=== PATIENT | female | born 1960 | race Two or more races ===

== ENCOUNTER 2022-02-16 23:38 | Emergency (ER) | payer MEDICAID, OTHER ==
[~2022-02-16] VITALS: Ht 175.3 cm; Wt 59.0 kg
[2022-02-17] MEDS ORDERED: PROMETHAZINE HCL 25 MG/ML 1ML IM ONE (09:45)
[2022-02-17 18:05] VITALS: BP 146/82
== END 2022-02-17 18:50 | disposition home or self-care (01) ==
LOC: EDBD 23:38 → ER 23:38
DX: S01.01XA Laceration without foreign body of scalp, initial encounter (principal); F10.10 Alcohol abuse, uncomplicated; I10 Essential (primary) hypertension; W18.39XA Other fall on same level, initial encounter; Y93.89 Activity, other specified; Y92.89 Other specified places as the place of occurrence of the external cause; Y99.8 Other external cause status; Y90.0 Blood alcohol level of less than 20 mg/100 ml
CPT/HCPCS: 12001; 36415; 70450; 80320; 96372; 99285; J2550

== ENCOUNTER 2023-02-28 09:30 | Inpatient (IN) | payer MEDICAID ==
[~2023-02-28] VITALS: Ht 175.3 cm; Wt 56.4 kg
[2023-02-28] MEDS ORDERED: SODIUM CHLORIDE 0.9% 1,000 ML IV ONE (10:45)
[2023-02-28 11:36] LABS: Basophils # (auto) 0 10 ^3/uL (0-0.2); Basophils % (auto) 0.4 % (0.0-2.0); Eosinophils # (auto) 0 10 ^3/uL (0-0.8); Eosinophils % (auto) 0.4 % (0.0-7.0); Hemoglobin 14.3 g/dL (12.2-16.2); Lymphocytes % (auto) 11.6 % (10.0-50.0); Mean Corpuscular Hemoglobin 33.5 pg (28.0-32.0); Mean Corpuscular Hgb Conc. 34.1 g/dL (32.0-36.0); Monocytes # (auto) 0.7 10 ^3/uL (0-1.3); Monocytes % (auto) 8.9 % (0.0-12.0); Neutrophils # (auto) 6.6 10 ^3/uL (1.6-8.6); Neutrophils % (auto) 78.7 % (37.0-80.0); Nucleated Red Blood Cells % 0.2 %; Red Blood Cells 4.28 10^6/uL (4.0-5.20); Red Cell Distribution Width 13.5 % (11.8-14.3); White Blood Cell 8.4 10^3/uL (4.4-10.8)
[2023-02-28 11:45] LABS: INR 0.97 (0.9-1.15); Partial Thromboplastin Time 28.5 sec (24.6-33.4)
[2023-02-28 11:48] LABS: Albumin 3.8 g/dL (3.4-5.0); Calcium 9.6 mg/dL (8.5-10.1); Potassium 4.2 mmol/L (3.5-5.1)
[2023-02-28 11:51] LABS: Bilirubin, Total 0.6 mg/dL (0.2-1.0); Total Protein 7.7 g/dL (6.4-8.2)
[2023-02-28] MEDS ORDERED: ONDANSETRON HCL 4 MG/2 ML VIAL IV PRN (13:15)
[2023-02-28] MEDS ORDERED: DOCUSATE SOD 100 MG CAP PO PRN (13:15)
[2023-02-28] MEDS ORDERED: MORPHINE SULFATE INJ 2 MG/ml SYRG IV PRN (13:15)
[2023-02-28] MEDS ORDERED: ETOMIDATE (2MG/ML) 20ML VIAL IV ONE (17:00)
[2023-02-28] MEDS: SODIUM CHLORIDE 0.9% 1,000 ML IV SCH ×2 (17:48→21:53)
[2023-03-01] MEDS: SODIUM CHLORIDE 0.9% 1,000 ML IV SCH ×3 (02:35→14:55)
[2023-03-01 05:00] VITALS: BP 124/84
[2023-03-01 06:13] LABS: Basophils # (auto) 0.1 10 ^3/uL (0-0.2); Basophils % (auto) 0.8 % (0.0-2.0); Eosinophils # (auto) 0.1 10 ^3/uL (0-0.8); Eosinophils % (auto) 1.1 % (0.0-7.0); Hematocrit 37.9 % (36.0-46.0); Hemoglobin 13.2 g/dL (12.2-16.2); Lymphocytes # (auto) 1.3 10 ^3/uL (0.4-5.4); Lymphocytes % (auto) 20.5 % (10.0-50.0); Mean Corpuscular Hemoglobin 33.6 pg (28.0-32.0); Mean Corpuscular Hgb Conc. 34.8 g/dL (32.0-36.0); Mean Corpuscular Volume 96.4 fL (80.0-100.0); Monocytes # (auto) 0.9 10 ^3/uL (0-1.3); Monocytes % (auto) 14.6 % (0.0-12.0); Nucleated Red Blood Cells % 0.2 %; Red Blood Cells 3.93 10^6/uL (4.0-5.20); Red Cell Distribution Width 13.6 % (11.8-14.3); White Blood Cell 6.4 10^3/uL (4.4-10.8)
[2023-03-01 06:25] LABS: BUN/Creatinine Ratio 21.1 (10.0-20.0); Potassium 4.2 mmol/L (3.5-5.1)
[2023-03-01 06:28] LABS: Bilirubin, Total 0.5 mg/dL (0.2-1.0); Total Protein 6.8 g/dL (6.4-8.2)
[2023-03-01 06:55] LABS: Urine Bacteria FEW /hpf (None Seen); Urine Blood Negative /uL (Negative); Urine Mucus FEW (None Seen); Urine Specific Gravity 1.009 (1.001-1.035); Urine WBC <1 /hpf (0 - 5)
[2023-03-01 07:07] LABS: Creatinine, Urine 42 mg/dL (30.0-125.0); Sodium Urine 92 mmol/L (40-220)
[2023-03-01 09:20] VITALS: BP_SYST 135; BP_SYST 139; BP_DIAS 77; BP_DIAS 80; BP_DIAS 85
[2023-03-01] MEDS: PANTOPRAZOLE 40 MG/10 ML VIAL INJ IV SCH (10:02)
[2023-03-01] MEDS: ENOXAPARIN SOD 40 MG/0.4 ML SYRINGE SC SCH (10:03)
[2023-03-01 13:09] VITALS: BP 148/93
[2023-03-01 17:00] VITALS: BP 149/95
[2023-03-01 20:00] VITALS: BP 148/86
[2023-03-01 22:00] VITALS: BP 150/87
[2023-03-02 05:00] VITALS: BP 160/103
[2023-03-02] MEDS: SODIUM CHLORIDE 0.9% 1,000 ML IV SCH ×3 (06:51→19:07)
[2023-03-02 08:51] VITALS: BP 161/88
[2023-03-02 13:00] VITALS: BP 157/107
[2023-03-02] MEDS: ENOXAPARIN SOD 40 MG/0.4 ML SYRINGE SC SCH (14:37)
[2023-03-02] MEDS: PANTOPRAZOLE 40 MG/10 ML VIAL INJ IV SCH (14:37)
[2023-03-02 17:00] VITALS: BP_SYST 156; BP_SYST 2; BP_DIAS 94
[2023-03-02] MEDS: FOLIC ACID 1 MG, MULTIPLE VITAMIN 10 ML, MAGNESIUM SULF SDV 50% 8 MEQ, THIAMINE INJ 100... INJ SCH ×5 (19:06)
[2023-03-02 20:00] VITALS: BP 137/76
[2023-03-02 21:59] VITALS: BP 136/96
[2023-03-03] VITALS (11 sets, daily range): BP systolic 112–152; BP diastolic 48–93
[2023-03-03] MEDS ORDERED: BUPIVACAINE HCL 50 ML ONE (07:48)
[2023-03-03] MEDS: SODIUM CHLORIDE 0.9% 1,000 ML IV SCH ×2 (07:55→16:15)
[2023-03-03] MEDS ORDERED: ceFAZolin 1GM/50ML 100 ML IV ONE (08:11)
[2023-03-03] MEDS ORDERED: fentaNYL CITRATE 100 MCG/2 ML VL ONE (08:17)
[2023-03-03] MEDS ORDERED: MORPHINE SULF PF 5 MG/10 ML VIAL ONE (08:17)
[2023-03-03] MEDS ORDERED: ePHEDrine SULFATE 50 MG/ML AMP ONE (08:18)
[2023-03-03] MEDS ORDERED: MIDAZOLAM HCL 2MG/2ML 2ml VIAL (1mg/ml) ONE (08:18)
[2023-03-03] MEDS ORDERED: GLYCOPYRROLATE 0.2 MG/ML 1ML VIAL ONE (08:18)
[2023-03-03] MEDS ORDERED: PROPOFOL 10 MG/ML 20 ML IV ONE (08:18)
[2023-03-03] MEDS ORDERED: ONDANSETRON HCL 4 MG/2 ML VIAL ONE (08:18)
[2023-03-03] MEDS ORDERED: LABETALOL HCL 5 MG/ML ML 20ML VIAL IV ONE (09:01)
[2023-03-03] MEDS: PANTOPRAZOLE 40 MG/10 ML VIAL INJ IV SCH (10:00)
[2023-03-03] MEDS: ENOXAPARIN SOD 40 MG/0.4 ML SYRINGE SC SCH (10:00)
[2023-03-03] MEDS ORDERED: diphenhdrAMINE HCL 50 MG/1 ML VL IV PRN (10:15)
[2023-03-03] MEDS ORDERED: DexAMETHasone SOD PHOS 10MG/1ML VIAL INJ IV PRN (10:15)
[2023-03-03] MEDS ORDERED: NALOXONE HCL 0.4 MG/ML VIAL IV PRN (10:15)
[2023-03-03] MEDS ORDERED: ONDANSETRON HCL 4 MG/2 ML VIAL IV PRN (10:15)
[2023-03-03] MEDS: ceFAZolin 1GM/50ML 50 ML IV SCH ×2 (15:16→22:42)
[2023-03-03] MEDS: FOLIC ACID 1 MG, MULTIPLE VITAMIN 10 ML, MAGNESIUM SULF SDV 50% 8 MEQ, THIAMINE INJ 100... INJ SCH ×5 (15:23)
[2023-03-04] VITALS (13 sets, daily range): BP systolic 113–156; BP diastolic 67–125
[2023-03-04] MEDS: ceFAZolin 1GM/50ML 50 ML IV SCH (05:20)
[2023-03-04] MEDS: SODIUM CHLORIDE 0.9% 1,000 ML IV SCH ×2 (05:20→09:49)
[2023-03-04] MEDS: KETOROLAC TROMETH 30 MG/ML 1ML VIAL IV PRN ×2 (06:53→15:24)
[2023-03-04] MEDS: ENOXAPARIN SOD 40 MG/0.4 ML SYRINGE SC SCH (09:49)
[2023-03-04] MEDS: PANTOPRAZOLE 40 MG/10 ML VIAL INJ IV SCH (09:49)
[2023-03-04] MEDS: FOLIC ACID 1 MG, MULTIPLE VITAMIN 10 ML, MAGNESIUM SULF SDV 50% 8 MEQ, THIAMINE INJ 100... INJ SCH ×5 (12:30)
[2023-03-04] MEDS ORDERED: ONDA-144 PO (14:23)
[2023-03-04] MEDS ORDERED: NALO4SPR2 (14:23)
[2023-03-04] MEDS ORDERED: HYDR-4902 PO (14:23)
[2023-03-04] MEDS ORDERED: TRAZ50TA2 PO (14:41)
== END 2023-03-04 17:14 | disposition home health service (06) | DRG 313 ==
LOC: EDBD 09:30 → ER 09:30 → OVERFLOW 13:06 → TELE-EAST 22:35 → EAST 22:45 → TELE-EAST 03-03 14:38
PROVIDERS: ADMIT Nurse Practitioner Family; ATTEND Internal Medicine
PROC: 0QSG04Z Reposition Right Tibia with Internal Fixation Device, Open Approach (ICD-10-PCS; 2023-03-03)
PROC: 0QSJ04Z Reposition Right Fibula with Internal Fixation Device, Open Approach (ICD-10-PCS; principal; 2023-03-03 08:23)
DX: S82.851A Displaced trimalleolar fracture of right lower leg, initial encounter for closed fracture (principal); E44.1 Mild protein-calorie malnutrition; E87.1 Hypo-osmolality and hyponatremia; E88.09 Other disorders of plasma-protein metabolism, not elsewhere classified; S91.111A Laceration without foreign body of right great toe without damage to nail, initial encounter; G62.9 Polyneuropathy, unspecified; I10 Essential (primary) hypertension; W01.0XXA Fall on same level from slipping, tripping and stumbling without subsequent striking against object, initial encounter; S93.04XA Dislocation of right ankle joint, initial encounter; F17.200 Nicotine dependence, unspecified, uncomplicated; F10.10 Alcohol abuse, uncomplicated; F51.04 Psychophysiologic insomnia; M19.90 Unspecified osteoarthritis, unspecified site; Y93.89 Activity, other specified; Z68.1 Body mass index [BMI] 19.9 or less, adult; Y92.89 Other specified places as the place of occurrence of the external cause; Y99.8 Other external cause status
CPT/HCPCS: 36415; 71045; 73600; 73610; 76000; 80053; 80320; 81001; 82570; 84300; 84484; 85025; 85610; 85730; 97110; 97163; C9113; G0378; J0690; J1885; J2250; J2405; J2704; J3490